=== PATIENT | male | born 1940 | race Hispanic/Latino ===

== ENCOUNTER → 2018-04-22 | Outpatient (CLI) | payer MEDICARE ==
[~2018-04-22] MED LIST: ATORVASTATIN CA10 MG PO; ATORVASTATIN CA20 MG PO; GLIMEPIRIDE2 MG PO; HYDRALAZINE HCL25 MG PO; LEVOTHYROXINE100 MC1 PO
--- NOTE | 2018-04-22 10:40 | Diagnostic Imaging Report ---
EXAMINATION: MRI of the brain without contrast. HISTORY: Memory loss, dementia. COMPARISON: Brain MRI on 07/26/2015 TECHNIQUE: Sagittal T1 ultrathin slice with coronal and axial reformations; axial DWI, T2, FLAIR, T2 gradient echo. FINDINGS: DEMENTIA: Structural lesion: No intra- or extra-axial mass or hematoma. Ventricles: No hydrocephalus. Emerson matter signal intensity: Cortex: Unremarkable. Basal ganglia: Unremarkable. Thalami: Unremarkable. White matter signal intensity: Cerebral: Persistent diffuse cardiomegaly longer hyperintense foci, most likely minimal nonspecific chronic microvascular ischemic changes. Brainstem: Unremarkable. Mamillary bodies/fornices and hippocampi: No atrophy or abnormal signal. Microhemorrhages: None. Atrophy: Global: Symmetric and age-appropriate. Focal: No disproportionate lobar, hippocampal, mesencephalic, pontine, or cerebellar atrophy. Vessels: Expected flow voids present in the major arteries and dural sinuses. Sella: Unremarkable. OTHER: Subarachnoid spaces: No abnormal signal intensity. Foramen magnum: Unremarkable. Skull: Unremarkable. Paranasal / mastoid sinuses: No significant inflammatory disease. IMPRESSION: 1. Moderate chronic microvascular ischemic changes, stable since MRI in 07/26/2015. 2. Mild generalized brain volume loss without disproportionate lobar atrophy. Signed by: Dr. Arlin Lay M.D. on 04/22/2018 10:36 AM
== END ==
LOC: MRI 08:11
PROVIDERS: ATTEND Internal Medicine
DX: R41.3 Other amnesia (principal); F03.90 Unspecified dementia, unspecified severity, without behavioral disturbance, psychotic disturbance, mood disturbance, and anxiety
CPT/HCPCS: 70551

== ENCOUNTER → 2019-07-25 | Day surgery (SDC) | payer MEDICARE ==
[2019-07-17 09:59] LABS: BASOPHILS # (AUTO) 0.1 (0.0-0.1); BASOPHILS % 0.9 % (0.0-1.0); EOSINOPHILS # (AUTO) 0.3 (0.0-0.4); EOSINOPHILS % 3.6 % (0.0-6.0); HEMATOCRIT 46.5 % (38.2-49.6); HEMOGLOBIN 16.2 g/dL (14.0-18.0); LYMPHOCYTES % 25.4 % (18.0-39.1); MEAN CORPUSCULAR HGB CONC 34.8 g/dL (31-35); MEAN CORPUSCULAR VOLUME 86.1 fL (81-99); MONOCYTES # (AUTO) 0.5 (0.2-0.8); NEUTROPHILS % 63.7 % (38.7-80.0); PLATELET COUNT 186 x10e3/uL (140-360)
[~2019-07-25] MED LIST changes: +CARVEDILOL3.125 MG PO; +CLOPIDOGREL75 MG PO; +INSULIN REGULAR, HUMAN 100 UNIT/1 ML 3ML VIAL ONE; +LEVOTHYROXINE50 MCG PO; +LISINOPRIL-HCT1 EACH PO; +MELOXICAM7.5 MG PO; +METFORMIN HCL500 MG PO; +OMEPRAZOLE40 MG PO; +PROPOFOL IV EMULSION 10 MG/ML 20 ML VIAL ONE; +RANITIDINE HCL150 MG PO
--- OUTSIDE RECORDS SUMMARY | 2019-07-25 05:50 | XMS REPORT ---
Author [facility] Address Unknown Phone Unavailable Care Team Providers Care Director Of [employer] Name Role Phone Yara KELLY Unavailable Unavailable Problems This patient has no known problems. Allergies, Adverse Reactions, Alerts This patient has no known allergies or adverse reactions. Medications This patient has no known medications. Results Test Description Test Time Test Comments Text Results Atomic Results Result Comments MRI BRAIN WO 2018-04-22 10:18:00 [place] [address] Patient Name: JUDD ALVAREZ MR #: [id number] : 1940 Age/Sex: 77/M Req #: [id number] Adm Physician: Ordered by: LEXIE KELLY MD Report #: [id number] Location: MRI Room/Bed: Procedure: [id number] MRI/MRI BRAIN WO Exam Date: Exam Time: REPORT STATUS: Signed EXAMINATION: MRI of the brain without contrast. HISTORY: Memory loss, dementia. COMPARISON: Brain MRI on 07/26/2015 TECHNIQUE: Sagittal T1 ultrathin slice with coronal and axial reformations; axial DWI, T2, FLAIR, T2 gradient echo. FINDINGS: DEMENTIA: Structural lesion: No intra- or extra-axial mass or hematoma. Ventricles: No hydrocephalus. Emerson matter signal intensity: Cortex: Unremarkable. Basal ganglia: Unremarkable. Thalami: Unremarkable. White matter signal intensity: Cerebral: Persistent diffuse cardiomegaly longer hyperintense foci, most likely minimal nonspecific chronic microvascular ischemic changes. Brainstem: Unremarkable. Mamillary bodies/fornices and hippocampi: No atrophy or abnormal signal. Microhemorrhages: None. Atrophy: Global: Symmetric and age-appropriate. Focal: No disproportionate lobar, hippocampal, mesencephalic, pontine, or cerebellar atrophy. Vessels: Expected flow voids present in the major arteries and dural sinuses. Sella: Unremarkable. OTHER: Subarachnoid spaces: No abnormal signal intensity. Foramen magnum: Unremarkable. Skull: Unremarkable. Paranasal / mastoid sinuses: No significant inflammatory disease. IMPRESSION: 1. Moderate chronic microvascular ischemic changes, stable since MRI in 07/26/2015. 2. Mild generalized brain volume loss without disproportionate lobar atrophy. Signed by: Dr. Zara Lay M.D. on 04/22/2018 10:36 AM Dictated By: ZARA LAY MD [id number] Transcribed By: ROSEANN on 04/22/18 1036 COPY TO: LEXIE KELLY MD
[2019-07-25 07:27] VITALS: BP 142/82
== END | disposition home or self-care (01) ==
LOC: OR 05:48 → EDBD 06:00
PROVIDERS: ATTEND Internal Medicine Gastroenterology
DX: K29.50 Unspecified chronic gastritis without bleeding (principal); K44.9 Diaphragmatic hernia without obstruction or gangrene; E66.9 Obesity, unspecified; Z68.31 Body mass index [BMI] 31.0-31.9, adult; I12.9 Hypertensive chronic kidney disease with stage 1 through stage 4 chronic kidney disease, or unspecified chronic kidney disease; N18.9 Chronic kidney disease, unspecified; E11.22 Type 2 diabetes mellitus with diabetic chronic kidney disease; E03.9 Hypothyroidism, unspecified; I25.10 Atherosclerotic heart disease of native coronary artery without angina pectoris; Z87.891 Personal history of nicotine dependence; Z01.810 Encounter for preprocedural cardiovascular examination; Z01.812 Encounter for preprocedural laboratory examination; Z95.1 Presence of aortocoronary bypass graft
CPT/HCPCS: 36415 ×2; 43239; 82948; 85025; 88305; 88312; 93005; J2704; J1817

== ENCOUNTER → 2019-09-03 | Outpatient (CLI) | payer MEDICARE ==
[~2019-09-03] MED LIST changes: -INSULIN REGULAR, HUMAN 100 UNIT/1 ML 3ML VIAL ONE; +LISINOPRIL-HCT1 EAC1 PO; -PROPOFOL IV EMULSION 10 MG/ML 20 ML VIAL ONE
[2019-09-03 09:34] LABS: BASOPHILS # (AUTO) 0.1 (0.0-0.1); BASOPHILS % 0.8 % (0.0-1.0); EOSINOPHILS # (AUTO) 0.3 (0.0-0.4); EOSINOPHILS % 4.8 % (0.0-6.0); HEMATOCRIT 45.9 % (38.2-49.6); HEMOGLOBIN 15.6 g/dL (14.0-18.0); LYMPHOCYTES # (AUTO) 2.2 (1.0-3.2); MEAN CORPUSCULAR HEMOGLOBIN 29.4 pg (28-32); MEAN CORPUSCULAR VOLUME 86.6 fL (81-99); MONOCYTES # (AUTO) 0.5 (0.2-0.8); MONOCYTES % 6.5 % (4.4-11.3); NEUTROPHILS % 56.5 % (38.7-80.0); PLATELET COUNT 177 x10e3/uL (140-360); RED CELL DISTRIBUTION WIDTH 12.6 % (11.7-14.4)
--- NOTE | 2019-09-03 09:56 | Diagnostic Imaging Report ---
EXAMINATION: CHEST 2 VIEWS INDICATION: Pre-operative COMPARISON: None FINDINGS: LINES/TUBES:None LUNGS:The lungs are moderately inflated. Mild bibasilar patchy opacities. PLEURA:No pleural effusion or pneumothorax. MEDIASTINUM:The cardiomediastinal silhouette is mildly enlarged. Atherosclerotic calcifications of the thoracic aorta. BONES/SOFT TISSUES:No acute osseous injury. Sternotomy wires in place. ABDOMEN:No free air under the diaphragm. IMPRESSION: Mild bibasilar patchy opacities, most likely subsegmental atelectasis. Mild cardiomegaly. Signed by: Royer Chambers MD on 09/03/2019 9:53 AM
[2019-09-03 09:58] LABS: ANION GAP 15.8 mmol/L (8-16); CALCIUM 9.7 mg/dL (8.4-10.2); CREATININE, SERUM 1.62 mg/dL (0.72-1.25); POTASSIUM 4.8 mmol/L (3.5-5.1)
== END ==
LOC: RAD 05:00 → EDSTATUS 09-04 10:30
PROVIDERS: ATTEND Surgery
DX: Z01.818 Encounter for other preprocedural examination (principal); K80.20 Calculus of gallbladder without cholecystitis without obstruction; Z53.8 Procedure and treatment not carried out for other reasons
CPT/HCPCS: 36415; 71046; 80053; 85025; 93005